=== PATIENT | male | born 1965 | race Caucasian/White ===

== ENCOUNTER 2018-02-24 14:16 | Emergency (ER) | payer OTHER ==
--- NOTE | 2018-02-24 14:57 | RAD ---
HISTORY: Left wrist across injury COMPARISONS: None VIEWS: 3, Frontal, lateral, and oblique views of the left breast FINDINGS: BONE DENSITY: Normal. BONES: There is no displaced fracture. JOINTS: There is no arthropathy. ALIGNMENT: There is no dislocation. SOFT TISSUES: Unremarkable. OTHER FINDINGS: None. IMPRESSION: NO ACUTE OSSEOUS INJURY. IF SYMPTOMS PERSIST, RECOMMEND REPEAT IMAGING.
--- NOTE | 2018-02-24 16:59 | ED ---
Upper Extremity Pain - HPI Summary HPI Summary: Patient is a 52-year-old male who presents emergency department for evaluation of a left arm injury that occurred 4 days ago. Patient states he closed his left wrist and his truck door on Wednesday. He states he did initially have a large hematoma that has been improving with ice. He is concerned today because pain continues and he noticed some redness to his hand. He does a history of diabetes. Symptoms are mild in severity. Using left arm makes symptoms worse. Rest makes symptoms better. Denies fevers, chills, nausea, vomiting. - History of Current Complaint Chief Complaint: EDExtremityUpper Stated Complaint: LT HAND SWELLING/REDNESS Time Seen by Provider: 02/24/18 16:09 Hx Obtained From: Patient - Allergies/Home Medications Allergies/Adverse Reactions: Allergies Allergy/AdvReac Type Severity Reaction Status Date / Time No Known Allergies Allergy Verified 04/04/13 08:04 PMH/Surg Hx/FS Hx/Imm Hx Previously Healthy: Yes Endocrine/Hematology History: Reports: Hx Diabetes Denies: Hx Anticoagulant Therapy, Hx Blood Disorders, Hx Blood Transfusions, Hx Bone Marrow Disease, Hx Systemic Lupus Erythematosus, Hx Sickle Cell Disease , Hx Thyroid Disease, Hx Anemia, Hx Unexplained Bleeding, Other Endocrine/ Hematological Disorders Cardiovascular History: Reports: Hx Angina, Hx Hypercholesterolemia, Hx Hypertension Denies: Hx Aneurysm, Hx Angioplasty, Hx Auto Implanted Cardiovert Defib, Hx Cardiac Arrest, Hx Cardiomegaly, Hx Congenital Heart Disease, Hx Congestive Heart Failure, Hx Coronary Artery Disease, Hx Deep Vein Thrombosis, Hx Hypotension, Hx Pacemaker/ICD, Hx Peripheral Vascular Disease, Hx Rheumatic Fever, Hx Syncope, Hx Valvular Heart Disease, Other Cardiovascular Problems/ Disorders Respiratory History: Reports: Hx Sleep Apnea Denies: Hx Asthma, Hx Chronic Bronchitis, Hx Chronic Obstructive Pulmonary Disease (COPD), Hx Cystic Fibrosis, Hx Lung Cancer, Hx Pleural Effusion, Hx Pneumonia, Hx Pulmonary Edema, Hx Pulmonary Embolism, Hx Seasonal Allergies, Other Respiratory Problems/Disorders GI History: Reports: Hx Gastroesophageal Reflux Disease Denies: Hx Cirrhosis, Hx Crohn's Disease, Hx Diverticulosis, Hx Gall Bladder Disease, Hx Gastrointestinal Bleed, Hx Hiatal Hernia, Hx Irritable Bowel, Hx Jaundice, Hx Obstructive Bowel, Hx Ileostomy, Hx Pyloric Stenosis, Hx Ulcer, Other GI Disorders History: Denies: Hx Acute Renal Failure, Hx Benign Prostatic Hyperplasia, Hx Chronic Renal Failure, Hx Dialysis, Hx Kidney Infection, Hx Kidney Stones, Other Problems/Disorders Musculoskeletal History: Reports: Hx Gout Denies: Hx Arthritis, Hx Back Problems, Hx Bursitis, Hx Congenital Bone Abnormalities, Hx Fibromyalgia, Hx Osteoporosis, Hx Scoliosis, Hx Tendonitis, Other Musculoskeletal History Sensory History: Reports: Hx Contacts or Glasses - : Reading glasses Denies: Hx Cataracts, Hx Eye Injury, Hx Eye Prosthesis, Hx Glaucoma, Hx Macular Degeneration, Hx Vision Problem, Hx Deafness, Hx Hearing Aid, Hx Hearing Problem, Other Sensory Impairments Opthamlomology History: Reports: Hx Contacts or Glasses - : Reading glasses Denies: Hx Cataracts, Hx Eye Injury, Hx Eye Prosthesis, Hx Glaucoma, Hx Macular Degeneration, Hx Vision Problem, Other Sensory Impairments Neurological History: Denies: Hx Dementia, Hx Developmental Delay, Hx Headaches, Hx Migraine, Hx Nerve Disease, Hx Seizures, Hx Spinal Cord Injury, Hx Transient Ischemic Attacks (TIA), Other Neuro Impairments/Disorders Psychiatric History: Denies: Hx Anxiety, Hx Attention Deficit Hyperactivity Disorder, Hx Eating Disorder, Hx Depression, Hx Panic Disorder, Hx Post Traumatic Stress Disorder, Hx Inpatient Treatment, Hx Community Mental Health Tx, Hx Schizophrenia, Hx Bipolar Disorder, Hx Suicide Attempt, Hx of Violent Episodes Against Others, Hx Substance Abuse, Other Psychiatric Issues/Disorders - Immunization History Immunizations Up to Date: Yes Infectious Disease History: No Infectious Disease History: Denies: Hx Clostridium Difficile, Hx Hepatitis, Hx Human Immunodeficiency Virus (HIV), Hx Shingles, Hx Tuberculosis, Traveled Outside the [place] in Last 30 Days - Social History Alcohol Use: Rare Substance Use Type: Reports: None Smoking Status (MU): Never Smoked Tobacco Review of Systems Constitutional: Negative Negative: Fever, Chills Positive: Other - swelling and redness to left wrist and hand Positive: Bruising Negative: Weakness, Paresthesia, Numbness All Other Systems Reviewed And Are Negative: Yes Physical Exam Triage Information Reviewed: Yes Vital Signs On Initial Exam: Initial Vitals Temp Pulse Resp BP Pulse Ox 98.0 F 95 15 140/74 93 02/24/18 14:34 02/24/18 14:34 02/24/18 14:34 02/24/18 14:34 02/24/18 14:34 Vital Signs Reviewed: Yes Appearance: Positive: Well-Appearing - Patient sitting on bed in no acute distress. Skin: Positive: Warm, Dry Head/Face: Positive: Normal Head/Face Inspection Eyes: Positive: Normal Neck: Positive: Supple Musculoskeletal: Positive: Other - Healing ecchymosis noted to the dorsal aspect of the distal left forearm. Pain extends to the upper forearm on palpation. Compartment is soft. Minimal edema. Vitiligo noted to bilateral hands. There is very faint increased warmth and redness to the dorsum of the left hand. Small, superficial abrasion noted to the left upper forearm without erythema, edema or fluctuance. Full range of motion of the hand and wrist and digits. Palpable radial pulse. Neurological: Positive: Normal, CN Intact II-III Diagnostics - Vital Signs Vital Signs Temp Pulse Resp BP Pulse Ox 02/24/18 14:34 98.0 F 95 15 140/74 93 - Laboratory Lab Statement: Any lab studies that have been ordered have been reviewed, and results considered in the medical decision making process. Course/Dx - Course Assessment/Plan: Patient presenting for evaluation after closing left lower arm in a door several days ago. He is afebrile and well appearing. X-rays negative for fracture or foreign body, reading per radiology. He does have very faint erythema and warmth noted to the dorsum of the hand. No signs of compartment syndrome or abscess. Will cover with Keflex 4 times a day. Epifanio wrap placed for comfort. Advised patient to elevate and ice intermittently. NSAIDs for pain as directed. Close follow-up with family doctor for recheck and return to the ER over the weekend for increased redness, swelling, pain, fever. Patient understands and agrees with plan. - Diagnoses Differential Diagnosis/HQI/PQRI: Positive: Contusion, Hematoma, Strain, Sprain Provider Diagnoses: Cellulitis, Contusion Discharge - Sign-Out/Discharge Documenting (check all that apply): Discharge/Admit/Transfer - Discharge Plan Condition: Good Disposition: HOME Prescriptions: Cephalexin CAP* [Keflex CAP*] 500 mg PO QID #40 cap Patient Education Materials: Cellulitis (ED), Contusion in Adults (ED) Referrals: Ten Du MD [Primary Care Provider] - Additional Instructions: Follow up with PCP for recheck Take antibiotic as directed NSAIDS for pain and swelling as directed Epifanio wrap for comfort Ice and elevate intermittently Return to ER for increased pain, redness, swelling, or fever - Billing Disposition and Condition Condition: GOOD Disposition: HOME
[2018-02-24 17:12] VITALS: BP 137/79
== END 2018-02-24 17:15 | disposition home or self-care (01) ==
LOC: ED 14:16
DX: L03.114 Cellulitis of left upper limb (principal); S40.022A Contusion of left upper arm, initial encounter; W23.0XXA Caught, crushed, jammed, or pinched between moving objects, initial encounter; Y92.9 Unspecified place or not applicable
CPT/HCPCS: 99282

== ENCOUNTER 2020-07-09 00:48 | Inpatient (IN) ==
[2020-07-09] MEDS ORDERED: Ondansetron 4 mg VIAL 2 MG/ML 2 ml VIAL IV ONE ×2 (00:57→02:08)
[2020-07-09] MEDS ORDERED: Pantoprazole VIAL 40 MG VIAL IV ONE (00:57)
[2020-07-09 01:07] LABS: ABS Basophils 0.1 10^3/ul (0-0.2); ABS Eosinophils 0.1 10^3/ul (0-0.6); Eosinophil % 0.7 %; Hematocrit 30 % (42-52); Hemoglobin 10.2 g/dL (14.0-18.0); Lymphocyte % 21.2 %; Mean Corpuscular HGB Conc 34 g/dL (31-36); Mean Corpuscular Hemoglobin 29 pg (27-31); Mean Corpuscular Volume 85 fL (80-94); Mean Platelet Volume 9.1 fL (7.4-10.4); Platelet Count 144 10^3/uL (150-450); Red Blood Count 3.55 10^6 /uL (4.18-5.48); Red Cell Distribution Width 17 % (10-15); White Blood Count 14.2 10^3/uL (3.5-10.8)
[2020-07-09] MEDS ORDERED: Octreotide Acetate 100 mcg/ml 50 MCG in NS 0.9% 50 ML 50 ML IV ONE ×2 (01:07→18:06)
[2020-07-09] MEDS ORDERED: cefTRIAXone 1 gm/50 mL NS BAG 1 GM/50 ML BAG IV ONE (01:12)
[2020-07-09 01:16] LABS: Activated Partial Thrombo Time 23.9 seconds (26.0-38.0); INR 1.27 (0.82-1.09)
[2020-07-09] MEDS ORDERED: NS 0.9% 50 ML 50 ML ONE (01:18)
[2020-07-09] MEDS ORDERED: NS 0.9% 1000 ml BAG 1,000 ML IV ONE (01:18)
[2020-07-09 01:25] LABS: ALT 39 U/L (7-52); AST 29 U/L (13-39); Albumin 3.6 g/dL (3.2-5.2); Albumin/Globulin Ratio 1.6 (1-3); Alkaline Phosphatase 65 U/L (34-104); Anion Gap 12 mmol/L (2-11); BUN/Creatinine Ratio 26.2 (8-20); Blood Urea Nitrogen 32 mg/dL (6-24); C Reactive Protein < 1.00 mg/L (<8.01); CO2 Carbon Dioxide 22 mmol/L (22-32); Calcium 9.5 mg/dL (8.6-10.3); Chloride 103 mmol/L (101-111); EGFR African American 75.2 (>60); EGFR Non-African American 62.1 (>60); Globulin 2.3 g/dL (2-4); Glucose 203 mg/dL (70-100); Lipase 65 U/L (11.0-82.0); Potassium 3.9 mmol/L (3.5-5.0); Sodium 137 mmol/L (135-145); Total Protein 5.9 g/dL (6.4-8.9)
[2020-07-09 01:27] LABS: Troponin I 0.01 ng/mL (<0.03)
[2020-07-09] MEDS ORDERED: Octreotide Acetate 50 MCG in NS 0.9% 50 ML 50 ML IV ONE (01:48)
[2020-07-09] MEDS ORDERED: PANTOPRAZOLE IV SCH (02:00)
[2020-07-09] MEDS ORDERED: NS 0.9% IV SCH (02:00)
[2020-07-09 02:27] LABS: Hematocrit 26 % (42-52); Hemoglobin 8.6 g/dL (14.0-18.0)
[2020-07-09] MEDS: Octreotide Acetate 500 MCG in NS 0.9% 100 ml BAG 100 ML IV SCH ×3 (02:29→18:21)
[2020-07-09] MEDS ORDERED: NS 0.9% IVPB ONE (02:45)
[2020-07-09] MEDS ORDERED: ERYTHROMYCIN LACTOBIONATE IVPB ONE (02:45)
[2020-07-09] MEDS ORDERED: Midazolam 10 mg/10 ml VIAL 1 mg/ml 10 ml VIAL (10 mg) ONE (02:59)
[2020-07-09] MEDS ORDERED: fentaNYL 100 mcg/2 ml 50 MCG/ML VIAL ONE (02:59)
[2020-07-09] MEDS ORDERED: Norepinephrine 16MCG/ML IVPRE 4,000 MCG/250 ML BAG IV ONE (03:42)
[2020-07-09 04:25] LABS: Magnesium 1.9 mg/dL (1.9-2.7)
[2020-07-09] MEDS ORDERED: Lactated Ringers 1000 ml BAG 1,000 ML IV ONE (04:39)
[2020-07-09] MEDS: Ondansetron 4 mg VIAL 2 MG/ML 2 ml VIAL IV SCH ×4 (04:48→21:35)
[2020-07-09 05:54] LABS: ABS Lymphocytes 0.6 10^3/ul (1.0-4.8); ABS Monocytes 0.2 10^3/ul (0-0.8); ABS Neutrophils 4.4 10^3/ul (1.5-7.7); Eosinophil % 0.1 %; Hematocrit 23 % (42-52); Hemoglobin 7.5 g/dL (14.0-18.0); Lymphocyte % 11.8 %; Mean Corpuscular HGB Conc 33 g/dL (31-36); Mean Corpuscular Hemoglobin 29 pg (27-31); Mean Corpuscular Volume 86 fL (80-94); Mean Platelet Volume 9.3 fL (7.4-10.4); Platelet Count 66 10^3/uL (150-450); Red Blood Count 2.63 10^6 /uL (4.18-5.48); Red Cell Distribution Width 16 % (10-15); White Blood Count 5.2 10^3/uL (3.5-10.8)
[2020-07-09 06:03] LABS: Albumin/Globulin Ratio 1.6 (1-3); EGFR African American 88.4 (>60); EGFR Non-African American 73.1 (>60); Globulin 1.9 g/dL (2-4); Magnesium 1.8 mg/dL (1.9-2.7); Phosphorus 3.7 mg/dL (2.5-5.0); Total Bilirubin 0.8 mg/dL (0.2-1.0); Total Protein 4.9 g/dL (6.4-8.9)
[2020-07-09] MEDS: Lactated Ringers 1000 ml BAG 1,000 ML IV SCH ×3 (06:32→22:44)
[2020-07-09 06:37] LABS: Potassium 6.3 mmol/L (3.5-5.0)
[2020-07-09] MEDS ORDERED: Magnesium Sulfate IV 1GM/100ML 1 GM/100 ML BAG IV ONE (06:39)
[2020-07-09] MEDS: Pantoprazole VIAL 40 MG VIAL IV SCH ×2 (07:53→21:34)
[2020-07-09 08:28] LABS: Hematocrit 22 % (42-52); Hemoglobin 7.5 g/dL (14.0-18.0)
[2020-07-09 15:36] LABS: Hematocrit 22 % (42-52); Hemoglobin 7.5 g/dL (14.0-18.0)
[2020-07-09 18:23] LABS: Hematocrit 24 % (42-52); Hemoglobin 7.9 g/dL (14.0-18.0); Mean Corpuscular HGB Conc 33 g/dL (31-36); Mean Corpuscular Hemoglobin 28 pg (27-31); Mean Corpuscular Volume 85 fL (80-94); Mean Platelet Volume 8.9 fL (7.4-10.4); Platelet Count 87 10^3/uL (150-450); Red Cell Distribution Width 17 % (10-15); White Blood Count 8.7 10^3/uL (3.5-10.8)
[2020-07-09 20:22] LABS: Hematocrit 23 % (42-52); Hemoglobin 7.6 g/dL (14.0-18.0)
[2020-07-10] MEDS: Ondansetron 4 mg VIAL 2 MG/ML 2 ml VIAL IV SCH ×4 (00:48→16:35)
[2020-07-10] MEDS ORDERED: cefTRIAXone 1 gm/50 mL NS BAG 1 GM/50 ML BAG IVPB SCH (01:00)
[2020-07-10 01:01] LABS: Hematocrit 22 % (42-52); Hemoglobin 7.4 g/dL (14.0-18.0)
[2020-07-10 01:35] LABS: Activated Partial Thrombo Time 23.1 seconds (26.0-38.0); INR 1.23 (0.82-1.09)
[2020-07-10] MEDS: Octreotide Acetate 500 MCG in NS 0.9% 100 ml BAG 100 ML IV SCH ×4 (03:12→22:20)
[2020-07-10 03:32] LABS: Urine Appearance Clear; Urine Bilirubin Negative (Negative); Urine Blood Negative (Negative); Urine Color Yellow; Urine Glucose 3+(>=500 mg/dL) (Negative); Urine Ketones Trace (Negative); Urine Nitrite Negative (Negative); Urine Protein Negative (Negative); Urine Specific Gravity 1.022 (1.010-1.030); Urine Urobilinogen Negative (Negative)
[2020-07-10 04:34] LABS: Hematocrit 23 % (42-52); Hemoglobin 7.8 g/dL (14.0-18.0)
[2020-07-10 04:44] LABS: Albumin 3.3 g/dL (3.2-5.2); Albumin/Globulin Ratio 1.5 (1-3); BUN/Creatinine Ratio 27.6 (8-20); Calcium 8.3 mg/dL (8.6-10.3); EGFR African American 89.4 (>60); EGFR Non-African American 73.9 (>60); Globulin 2.2 g/dL (2-4); Potassium 4.1 mmol/L (3.5-5.0); Total Bilirubin 1.4 mg/dL (0.2-1.0); Total Protein 5.5 g/dL (6.4-8.9)
[2020-07-10] MEDS: Lactated Ringers 1000 ml BAG 1,000 ML IV SCH ×2 (06:54→17:30)
[2020-07-10] MEDS ORDERED: Dextrose 50% Syringe 50 ml 25 GM/50 ML SYRINGE IV PUSH PRN (07:53)
[2020-07-10 08:26] LABS: Hematocrit 23 % (42-52); Hemoglobin 7.5 g/dL (14.0-18.0)
[2020-07-10] MEDS: Pantoprazole VIAL 40 MG VIAL IV SCH ×2 (09:46→21:49)
[2020-07-10] MEDS: cefTRIAXone 1 gm/50 mL NS BAG 1 GM/50 ML BAG IVPB SCH (09:47)
[2020-07-10 12:13] LABS: Hematocrit 23 % (42-52); Hemoglobin 7.6 g/dL (14.0-18.0)
[2020-07-10] MEDS ORDERED: Ondansetron 4 mg VIAL 2 MG/ML 2 ml VIAL IV PRN (16:17)
[2020-07-10 18:32] LABS: Hematocrit 22 % (42-52); Hemoglobin 7.2 g/dL (14.0-18.0)
[2020-07-10] MEDS ORDERED: NS 0.9% 100 ml BAG 100 ML ONE (22:15)
[2020-07-10 22:43] LABS: Hematocrit 23 % (42-52); Hemoglobin 7.7 g/dL (14.0-18.0)
[2020-07-11] MEDS: Octreotide Acetate 500 MCG in NS 0.9% 100 ml BAG 100 ML IV SCH ×3 (00:54→18:35)
[2020-07-11] MEDS: Lactated Ringers 1000 ml BAG 1,000 ML IV SCH (01:39)
[2020-07-11 05:08] LABS: ABS Eosinophils 0.1 10^3/ul (0-0.6); ABS Monocytes 0.4 10^3/ul (0-0.8); ABS Neutrophils 2.1 10^3/ul (1.5-7.7); Eosinophil % 1.4 %; Hematocrit 19 % (42-52); Hemoglobin 6.3 g/dL (14.0-18.0); Lymphocyte % 28.4 %; Mean Corpuscular HGB Conc 34 g/dL (31-36); Mean Corpuscular Hemoglobin 29 pg (27-31); Mean Corpuscular Volume 87 fL (80-94); Mean Platelet Volume 8.8 fL (7.4-10.4); Nucleated Red Blood Cells % 0.2; Platelet Count 64 10^3/uL (150-450); Red Blood Count 2.18 10^6 /uL (4.18-5.48); Red Cell Distribution Width 17 % (10-15); White Blood Count 3.5 10^3/uL (3.5-10.8)
[2020-07-11 05:18] LABS: Albumin 3.1 g/dL (3.2-5.2); Albumin/Globulin Ratio 1.6 (1-3); BUN/Creatinine Ratio 20.8 (8-20); EGFR African American 88.4 (>60); EGFR Non-African American 73.1 (>60); Globulin 1.9 g/dL (2-4); Potassium 3.9 mmol/L (3.5-5.0); Total Bilirubin 1.3 mg/dL (0.2-1.0)
[2020-07-11 05:57] LABS: Hematocrit 21 % (42-52); Hemoglobin 6.9 g/dL (14.0-18.0)
[2020-07-11 07:46] LABS: Magnesium 1.6 mg/dL (1.9-2.7)
[2020-07-11] MEDS: Pantoprazole VIAL 40 MG VIAL IV SCH ×2 (09:03→21:25)
[2020-07-11] MEDS: cefTRIAXone 1 gm/50 mL NS BAG 1 GM/50 ML BAG IVPB SCH (09:03)
[2020-07-11 12:03] LABS: Hematocrit 22 % (42-52); Hemoglobin 7.1 g/dL (14.0-18.0)
[2020-07-11 17:25] LABS: Hematocrit 21 % (42-52)
[2020-07-11 23:15] LABS: Hematocrit 19 % (42-52); Hemoglobin 6.4 g/dL (14.0-18.0)
[2020-07-12] MEDS: Octreotide Acetate 500 MCG in NS 0.9% 100 ml BAG 100 ML IV SCH (06:04)
[2020-07-12 07:50] LABS: ABS Eosinophils 0.1 10^3/ul (0-0.6); ABS Lymphocytes 0.9 10^3/ul (1.0-4.8); ABS Monocytes 0.4 10^3/ul (0-0.8); ABS Neutrophils 1.7 10^3/ul (1.5-7.7); Eosinophil % 1.9 %; Hematocrit 21 % (42-52); Hemoglobin 7.1 g/dL (14.0-18.0); Lymphocyte % 29.6 %; Mean Corpuscular HGB Conc 35 g/dL (31-36); Mean Corpuscular Hemoglobin 29 pg (27-31); Mean Corpuscular Volume 85 fL (80-94); Mean Platelet Volume 8.6 fL (7.4-10.4); Nucleated Red Blood Cells % 0.1; Platelet Count 66 10^3/uL (150-450); Red Blood Count 2.43 10^6 /uL (4.18-5.48); Red Cell Distribution Width 16 % (10-15)
[2020-07-12] MEDS: Pantoprazole VIAL 40 MG VIAL IV SCH ×2 (09:40→20:26)
[2020-07-12] MEDS: cefTRIAXone 1 gm/50 mL NS BAG 1 GM/50 ML BAG IVPB SCH (09:42)
[2020-07-12] MEDS ORDERED: Magnesium Sulfate 2 gm BAG 2 GM/50 ML BAG IVPB ONE (12:00)
[2020-07-12 23:20] LABS: Hematocrit 21 % (42-52)
[2020-07-13 07:12] LABS: Hematocrit 22 % (42-52); Hemoglobin 7.4 g/dL (14.0-18.0)
[2020-07-13] MEDS: cefTRIAXone 1 gm/50 mL NS BAG 1 GM/50 ML BAG IVPB SCH (09:28)
[2020-07-13] MEDS: Pantoprazole VIAL 40 MG VIAL IV SCH ×2 (09:28→20:55)
[2020-07-13] MEDS ORDERED: NS 0.9% 500 ml BAG 500 ML IV SCH (18:00)
[2020-07-13 18:41] LABS: Hematocrit 23 % (42-52); Hemoglobin 7.5 g/dL (14.0-18.0)
[2020-07-14 06:46] LABS: ABS Lymphocytes 0.8 10^3/ul (1.0-4.8); ABS Monocytes 0.3 10^3/ul (0-0.8); ABS Neutrophils 1.5 10^3/ul (1.5-7.7); Eosinophil % 1.7 %; Hematocrit 22 % (42-52); Hemoglobin 7.5 g/dL (14.0-18.0); Lymphocyte % 30.3 %; Mean Corpuscular HGB Conc 33 g/dL (31-36); Mean Corpuscular Hemoglobin 29 pg (27-31); Mean Corpuscular Volume 85 fL (80-94); Mean Platelet Volume 8.3 fL (7.4-10.4); Platelet Count 68 10^3/uL (150-450); Red Blood Count 2.63 10^6 /uL (4.18-5.48); Red Cell Distribution Width 16 % (10-15); White Blood Count 2.7 10^3/uL (3.5-10.8)
[2020-07-14 06:54] LABS: BUN/Creatinine Ratio 12.4 (8-20); Calcium 8.3 mg/dL (8.6-10.3); Magnesium 1.7 mg/dL (1.9-2.7); Potassium 3.7 mmol/L (3.5-5.0)
[2020-07-14] MEDS ORDERED: Magnesium Sulfate 2 gm BAG 2 GM/50 ML BAG IVPB ONE (07:34)
[2020-07-14] MEDS: Pantoprazole VIAL 40 MG VIAL IV SCH (08:31)
[2020-07-14] MEDS: cefTRIAXone 1 gm/50 mL NS BAG 1 GM/50 ML BAG IVPB SCH (08:31)
[2020-07-14 08:34] VITALS: BP 111/55
[2020-07-14 11:16] LABS: Thyroid Peroxidase Antibodies 0.57 IU/mL (<9)
== END 2020-07-14 11:15 | disposition home or self-care (01) | DRG 811 ==
LOC: ED 00:48 → ICU 01:47 → MED 07-11 18:21
PROVIDERS: ADMIT Internal Medicine; ATTEND Internal Medicine

== ENCOUNTER 2024-05-12 00:05 | Observation (INO) ==
[2024-05-12 01:49] LABS: INR 1.18 (0.83-1.13)
[2024-05-12 02:06] LABS: ABS Lymphocytes 0.5 10^3/uL (1.0-4.8); ABS Monocytes 0.4 10^3/uL (0.0-1.1); ABS Neutrophils 2.4 10^3/uL (1.5-7.6); Eosinophil % 0.5 %; Hematocrit 25.8 % (38-53); Hemoglobin 7.8 g/dL (13.2-16.3); Lymphocyte % 13.9 %; Mean Corpuscular Hemoglobin 19.1 pg (27-33); Mean Corpuscular Hgb Conc 30.3 g/dL (31-36); Mean Platelet Volume 8.5 fL (7.5-11.2); Platelet Count 64 10^3/uL (150-450); Red Cell Distribution Width 20.7 % (12-17); White Blood Count 3.3 10^3/uL (3.6-10.2)
[2024-05-12] MEDS: Pantoprazole 80 mg in NS BAG 80 MG/250 ML BAG IV ONE (02:17)
[2024-05-12] MEDS: Ondansetron 4 mg VIAL 2 MG/ML 2 ml VIAL IV ONE (02:17)
[2024-05-12] MEDS: Lactated Ringers 1000 ml BAG 1,000 ML IV ONE ×2 (02:18→04:00)
[2024-05-12 02:33] LABS: Albumin 4.2 g/dL (3.2-5.2); Albumin/Globulin Ratio 1.6 (1-3); C Reactive Protein 1.14 mg/L (<8.01); Calcium 9.3 mg/dL (8.6-10.3); Creatinine, Serum 1.44 mg/dL (0.67-1.17); Globulin 2.6 g/dL (2-4); Potassium 4.2 mmol/L (3.5-5.0); Total Protein 6.8 g/dL (6.4-8.9); eGFR CKD-EPI 56.7 (>60)
[2024-05-12 02:35] LABS: Urine Appearance Clear; Urine Bacteria Absent /HPF (Absent); Urine Bilirubin Negative (Negative); Urine Blood 1+ (Negative); Urine Color Yellow; Urine Glucose 4+ (>=1000 mg/dL) (Negative); Urine Ketones Negative (Negative); Urine Nitrite Negative (Negative); Urine Protein Negative (Negative); Urine Red Blood Cell 1+(3-5/hpf) /HPF (0-Trace); Urine Urobilinogen Negative (Negative); Urine White Blood Cell Absent /HPF (0-Trace)
[2024-05-12] MEDS: Lactulose 30 ml UDC PO ONE (02:59)
[2024-05-12] MEDS: cefTRIAXone 2 gm/50 mL D5W 2 GM/50 ML BAG IV ONE (02:59)
[2024-05-12] MEDS: Iodixanol (CONTRAST) 320 MG/ML 100 ML SDV IV ONE (03:26)
[2024-05-12] MEDS ORDERED: cefTRIAXone 2 gm/50 mL D5W 2 GM/50 ML BAG IV SCH (06:30)
[2024-05-12] MEDS ORDERED: Dextrose 50% Syringe 50 ml 25 GM/50 ML SYRINGE IV PUSH PRN (06:51)
[2024-05-12] MEDS: Octreotide Acetate 50 MCG in NS 0.9% 50 ML 50 ML IV ONE (06:52)
[2024-05-12] MEDS: Octreotide Acetate 500 MCG in NS 0.9% 100 ml BAG 100 ML IV SCH (06:52)
[2024-05-12] MEDS ORDERED: Ondansetron 4 mg VIAL 2 MG/ML 2 ml VIAL IV PRN (08:11)
[2024-05-12] MEDS ORDERED: fentaNYL 100 mcg/2 ml 50 MCG/ML VIAL ONE (10:49)
[2024-05-12] MEDS ORDERED: Midazolam 10 mg/10 ml VIAL 1 mg/ml 10 ml VIAL (10 mg) ONE (10:49)
[2024-05-12] MEDS: Pantoprazole 80 mg in NS BAG 80 MG/250 ML BAG IV SCH (15:46)
[2024-05-12] MEDS: Lactulose 30 ml UDC PO SCH (16:56)
[2024-05-12 17:47] LABS: Hematocrit 26.6 % (38-53); Hemoglobin 7.9 g/dL (13.2-16.3)
[2024-05-13 01:33] LABS: Hematocrit 24.6 % (38-53); Hemoglobin 7.3 g/dL (13.2-16.3)
[2024-05-13] MEDS ORDERED: cefTRIAXone 2 gm/50 mL D5W 2 GM/50 ML BAG IV SCH (02:30)
[2024-05-13] MEDS: cefTRIAXone 2 gm/50 mL D5W 2 GM/50 ML BAG IV SCH (04:20)
[2024-05-13 07:32] LABS: Hemoglobin 7.3 g/dL (13.2-16.3); Mean Corpuscular Hemoglobin 19.1 pg (27-33); Mean Corpuscular Hgb Conc 30.4 g/dL (31-36); Mean Corpuscular Volume 62.7 fL (80-97); Red Blood Count 3.82 10^6/uL (4.06-5.63); Red Cell Distribution Width 20.2 % (12-17); White Blood Count 3.4 10^3/uL (3.6-10.2)
[2024-05-13 07:33] LABS: ABS Eosinophils 0.1 10^3/uL (0.0-0.5); ABS Lymphocytes 0.6 10^3/uL (1.0-4.8); ABS Monocytes 0.4 10^3/uL (0.0-1.1); ABS Neutrophils 2.3 10^3/uL (1.5-7.6); Eosinophil % 3.8 %; Lymphocyte % 17.4 %; Mean Platelet Volume 8.7 fL (7.5-11.2); Nucleated Red Blood Cells % 0.1 %/100WBC (0.0-0.8); Platelet Count 58 10^3/uL (150-450)
[2024-05-13 07:58] LABS: Calcium 8.5 mg/dL (8.6-10.3); Creatinine, Serum 1.17 mg/dL (0.67-1.17); Potassium 4.1 mmol/L (3.5-5.0); eGFR CKD-EPI 72.7 (>60)
[2024-05-13 07:59] LABS: Hematocrit 23.9 % (38-53); Hemoglobin 7.2 g/dL (13.2-16.3)
[2024-05-13 08:05] LABS: Anisocytosis 2+; Microcytosis 2+
[2024-05-13 08:07] LABS: Hypochromasia 1+
[2024-05-13 14:53] LABS: Hematocrit 25.2 % (38-53); Hemoglobin 7.6 g/dL (13.2-16.3)
[2024-05-13 17:59] LABS: Ferritin 3.4 ng/mL (24-336)
[2024-05-13] MEDS ORDERED: Lactulose 30 ml UDC PO SCH (21:00)
[2024-05-14 06:38] LABS: ABS Eosinophils 0.1 10^3/uL (0.0-0.5); ABS Lymphocytes 0.6 10^3/uL (1.0-4.8); ABS Monocytes 0.4 10^3/uL (0.0-1.1); Eosinophil % 2.1 %; Hemoglobin 7.2 g/dL (13.2-16.3); Mean Corpuscular Hemoglobin 19.1 pg (27-33); Mean Corpuscular Hgb Conc 30.1 g/dL (31-36); Mean Corpuscular Volume 63.7 fL (80-97); Mean Platelet Volume 8.7 fL (7.5-11.2); Nucleated Red Blood Cells % 0.1 %/100WBC (0.0-0.8); Platelet Count 54 10^3/uL (150-450); Red Blood Count 3.76 10^6/uL (4.06-5.63); Red Cell Distribution Width 20.5 % (12-17); White Blood Count 3.1 10^3/uL (3.6-10.2)
[2024-05-14 06:47] LABS: Albumin 3.7 g/dL (3.2-5.2); Albumin/Globulin Ratio 1.5 (1-3); Calcium 8.5 mg/dL (8.6-10.3); Globulin 2.4 g/dL (2-4); Potassium 4.1 mmol/L (3.5-5.0); Total Bilirubin 1.6 mg/dL (0.2-1.0); Total Protein 6.1 g/dL (6.4-8.9); eGFR CKD-EPI 87.8 (>60)
[2024-05-14] MEDS: Ferric Gluconate IV 250 MG in NS 0.9% 250 ml 200 ML IVPB SCH (11:29)
[2024-05-14 14:21] VITALS: BP 101/56
== END 2024-05-14 15:45 | disposition home or self-care (01) ==
LOC: ED 00:05 → EDHOLD 00:05 → AA 10:00 → EDHOLD 10:03 → MED 13:51
PROVIDERS: ADMIT Internal Medicine; ATTEND Internal Medicine